=== PATIENT | female | born 1950 | race Caucasian/White ===

== ENCOUNTER → 2016-09-24 | Outpatient (CLI) | payer OTHER ==
[~2016-09-24] MED LIST: ASPIRIN81 M1 PO; FISH OIL 1,2001 CAP PO; GLUCOSAMINE500 M1 PO; LISINOPRIL PO; MELOXICAM15 MG PO; SIMVASTATIN40 MG PO; TOPROL XL100 MG PO; TRIAMTERENE-HCT1 TA6 PO; ZOLPIDEM TARTRA10 MG PO
--- NOTE | ~2016-09-24 | MY29 ---
[facility] A [facility] of [facility] RADIOLOGY TEXT RESULTS PATIENT: ESTEFANY CHAN LOCATION: [facility] : 48 UNIT #: [id number] AGE: [address]: MARLO QURESHI MD SEX: F ORDER DR: [id number] [facility] [address] [place], [place] [address] [id number] O MR#: [id number] Acc #: [id number] NAME: ESTEFANY CHAN : 1950 SEX: F STUDY DATE/TIME: 09/24/2016 10:55 UNIT: [facility] ROOM: STUDY DESCRIPTION: MY CHRIS SCREENING W/ CAD BILAT Attending Physician: Marlo Qureshi M.D. Ordering Physician: Marlo Qureshi M.D. Primary Care Physician: Marlo Qureshi M.D. MEDICAL IMAGING REPORT This report is preliminary unless electronic signature is present EXAM Bilateral digital screening mammogram with CAD 09/24/2016 CLINICAL HISTORY 66-year-old female with no personal or family history of breast cancer. FINDINGS Background breast parenchyma consists of scattered fibroglandular densities. There are benign calcifications in both breasts. A well-circumscribed nodule in the central left breast is unchanged from multiple prior exams (1.2 cm). The exam is compared to prior mammograms dated 08/25/2015 and 08/02/2014. IMPRESSION Benign mammogram. RECOMMENDATIONS: Annual screening mammogram. Patient's over the age of 40 are entered into a reminder system with target due date for the next mammogram. BIRADS: 2 Benign findings Dictated by... Sebastien Scott M.D. THIS IS AN ELECTRONICALLY VERIFIED REPORT Sebastien Scott M.D. at 09/24/2016 4:48 PM Jillian/marilyn TD: 09/24/2016 15:37 JOB #: [id number] [facility] A [facility] of [facility] RADIOLOGY TEXT RESULTS PATIENT: ESTEFANY CHAN LOCATION: [facility] #: [id number] : 48 UNIT #: [id number] AGE: [address]: MARLO QURESHI MD SEX: F ORDER DR: MEDICAL IMAGING REPORT Page 1 of 1 COPY
--- NOTE | ~2016-09-24 | US5 ---
[facility] A Service of [facility] RADIOLOGY TEXT RESULTS PATIENT: ESTEFANY CHAN LOCATION: [facility] : 48 UNIT #: [id number] AGE: [address]: MARLO GOTTI MD SEX: F ORDER DR: [id number] [facility] [address] [place], [place] [address] [id number] O MR#: [id number] Acc #: [id number] NAME: ESTEFANY CHNA : 1950 SEX: F STUDY DATE/TIME: 09/24/2016 10:13 UNIT: [facility] ROOM: STUDY DESCRIPTION: US Abdominal Complete Attending Physician: Marlo Gotti M.D. Ordering Physician: Marlo Gotti M.D. Primary Care Physician: Marlo Gotti M.D. MEDICAL IMAGING REPORT This report is preliminary unless electronic signature is present EXAM Abdominal ultrasound INDICATIONS Elevated liver enzyme levels last week. PROCEDURE Muhammad-scale and Doppler imaging of the abdomen. COMPARISON None FINDINGS Visualized portions of pancreas unremarkable. Liver measures 16.1 cm and has increased echotexture. No liver mass is seen on submitted images. Right kidney measures 9.8 cm. No hydronephrosis. Common duct measures 4.0 mm. Visualized portions abdominal aorta are unremarkable. Left kidney measures 10.7 cm. No hydronephrosis. Spleen measures 11.8 cm. IMPRESSION 1. Increased liver echotexture most in keeping with steatosis. 2. Previous cholecystectomy. Dictated by... Gideon Baez M.D. THIS IS AN ELECTRONICALLY VERIFIED REPORT Gideon Baez M.D. at 09/25/2016 2:02 PM REJI/hussein TD: 09/24/2016 14:39 JOB #: [id number] [facility] A Service of [facility] RADIOLOGY TEXT RESULTS PATIENT: ESTEFANY CHAN LOCATION: [facility] : 48 UNIT #: [id number] AGE: [address]: MARLO GOTTI MD SEX: F ORDER DR: MEDICAL IMAGING REPORT Page 1 of 1 COPY
== END | disposition home or self-care (01) ==
LOC: CWCC 09:59
DX: Z12.31 Encounter for screening mammogram for malignant neoplasm of breast (principal); R94.5 Abnormal results of liver function studies; K76.0 Fatty (change of) liver, not elsewhere classified; Z90.49 Acquired absence of other specified parts of digestive tract
CPT/HCPCS: 76700; G0202